=== PATIENT | female | born 1960 | race African-American/Black ===

== ENCOUNTER 2016-09-10 13:10 | Emergency (ER) | payer MEDICAID ==
[~2016-09-10] VITALS: Ht 165.1 cm; Wt 136.3 kg
[~2016-09-10 13:10] MED LIST: 1-ME1LIQ PO; AFRI0.055; ALBU6.7H INH; FURO20 PO; GABA600T PO; LISI-366 PO; METF500 PO; PERM5CRE TOP; POTA20IN3 PO; SPIRCAP INH; SYMB160A INH; TIZA4 PO
[2016-09-10 13:12] VITALS: BP 200/90; PULSE 81; RESP 18; TEMP 98.4; O2SAT 97
--- NOTE | 2016-09-10 15:40 | PD ---
HPI Chief Complaint: Cold / Flu Symptoms Time Seen by Provider: 15:40 Travel History International Travel<30 days: No Contact w/Intl Traveler<30days: No Traveled to known affect area: No History of Present Illness HPI 55-year-old female presents to the emergency Department with complaint of cough , nasal congestion, ear fullness, facial pressure 2 days. She has asthma and reports cough is continuous. She reports wheezing. She has been using her albuterol inhaler with minimal relief. Denies chest pain, shortness of breath. Denies fever, chills, nausea, vomiting. Denies headache. Has tried taking [id number] medications with no relief of symptoms. Grandson is sick with similar symptoms. Denies tobacco use. Has history of diabetes and hypertension. No other modifying factors or associated signs and symptoms. PFSH Past Medical History Asthma: Yes Depression: Yes COPD: Yes Diabetes: Yes Diminished Hearing: No Hypertension: Yes Respiratory: Yes Menopausal: Yes Tubal Ligation: Yes Past Surgical History Other Surgery: Yes (BREAST REDUCTION.) Social History Alcohol Use: No Tobacco Use: No (QUIT 2010 2 PPD) Substance Use: No Allergies-Medications (Allergen,Severity, Reaction): Coded Allergies: No Known Allergies (Unverified , 09/10/16) Reported Meds & Prescriptions Reported Meds & Active Scripts Active Deltasone (Prednisone) 20 Mg Tab 40 Mg PO DAILY 4 Days start 09/11/2016 Nasonex Nasal [place] (Mometasone Furoate) 50 Mcg/Act Naspr 2 [place] EACH NARE DAILY PRN Reported Hydrocodone-Acetaminophen 10-325 mg Tab 1 Tab PO BID PRN Benadryl Allergy (Diphenhydramine HCl) 25 Mg Tab 25 Mg PO BID PRN Sertraline (Sertraline HCl) 100 Mg Tab 100 Mg PO DAILY Ropinirole 0.5 Mg Tab 0.5 Mg PO HS Symbicort Inh (Budesonide/Formoterol Fumarate) 160-4.5 Mcg/Act Aero 1 Puff INH Q12HR Proventil Hfa 6.7 GM Inh (Albuterol Sulfate) 90 Mcg/Act Aer 2 Puff INH Q6H PRN Aspirin 81 Low Dose (Aspirin) 81 Mg Chew 81 Mg CHEW DAILY Potassium Chloride ER (Potassium Chloride) 10 Meq Tab 10 Meq PO DAILY Gabapentin 600 Mg Tab 600 Mg PO DAILY Mobic (Meloxicam) 15 Mg Tab 15 Mg PO TIDPC Amlodipine (Amlodipine Besylate) 10 Mg Tab 10 Mg PO DAILY Lisinopril 40 Mg Tab 40 Mg PO DAILY Furosemide 40 Mg Tab 40 Mg PO DAILY Claritin (Loratadine) 10 Mg Tab 10 Mg PO BID Metformin (Metformin HCl) 500 Mg Tab 500 Mg PO BIDPC With meals Review of Systems Except as stated in HPI: all other systems reviewed are Neg Physical Exam Narrative GENERAL: Well-nourished, well-developed female patient, in no acute distress SKIN: Warm and dry. No rash. HEAD: Atraumatic. Normocephalic. EYES: Pupils equal and round at 3 mm with brisk reaction. No scleral icterus. No injection or drainage. PERRLA. ENT: Mucosa pink and moist. No erythema or exudates. No uvular edema. No uvular , palatal, or tonsillar deviation. Airway patent. EARS: Bilateral pinnae and external canals appear within normal limits. Bilateral tympanic membranes without erythema, dullness or perforation. NECK: Trachea midline. No lymphadenopathy. CARDIOVASCULAR: Regular rate and rhythm. No murmur appreciated. RESPIRATORY: No accessory muscle use. Clear and decreased throughout to auscultation; no wheezing on auscultation. Breath sounds equal bilaterally. No audible wheezing. No retractions or tachypnea. GASTROINTESTINAL: Abdomen soft, non-tender, nondistended. Hepatic and splenic margins not palpable. Bowel sounds are active 4 quadrants. MUSCULOSKELETAL: No obvious deformities. No clubbing. No cyanosis. No edema. NEUROLOGICAL: Awake and alert. Oriented 3. No obvious cranial nerve deficits. Motor grossly within normal limits. Normal speech. Moves all extremities. 5/5 strength to all extremities. PSYCHIATRIC: Appropriate mood and affect; insight and judgment normal. Data Data Last Documented VS Vital Signs Date Time Temp Pulse Resp B/P Pulse Ox O2 Delivery O2 Flow Rate FiO2 09/10/16 17:12 68 18 155/83 97 Room Air 09/10/16 13:12 98.4 Orders Prednisone (Deltasone) (09/10/16 16:00) Albuterol-Ipratropium Neb (Duoneb Neb) (09/10/16 16:00) [facility] Medical Decision Making Medical Screen Exam Complete: Yes Emergency Medical Condition: Yes Medical Record Reviewed: Yes Differential Diagnosis Viral illness, bronchitis, asthma exacerbation, sinusitis Narrative Course 35-year-old female with history of asthma, physical exam consistent with viral illness and asthma exacerbation. Afebrile. Denies fever, chills, nausea, vomiting. Lungs are clear and equal throughout with decreased lung sounds. No retractions or tachypnea. No audible wheezing. Patient is in no acute distress and her oxygen saturation is 99% on room air. Patient has hypertension and the pressure is elevated in the ER 200/99. She is complaint with her medications. She denies symptoms of hypertension at this time. She' ll requesting steroids for asthma exacerbation. Discussed diabetes and steroid use and patient says she's taken them in the past and he usually prescribed to her when she gets sick like this. I will prescribe Deltasone per patient's request and her understanding of the side effects with diabetes. DuoNeb 1 and Deltasone administered in the ER. Blood pressure will be rechecked prior to discharge. 1723: Blood pressure recheck 155/83. Patient reports improvement in symptoms after breathing treatment. Lungs are clear and equal throughout on reexamination. Patient has albuterol inhaler at home and does not need a refill. Deltasone and Nasonex prescribed for home. Patient is medically cleared and stable for discharge. Discussed reasons to return to the emergency department. Instructed patient to follow up with primary care provider. Patient agrees with treatment plan. The patients vital signs are stable and the patient is stable for outpatient follow-up and treatment. Patient discharged home, stable and in no acute distress. Diagnosis Primary Impression: Viral illness Additional Impression: Asthma exacerbation Referrals: Primary Care Physician Patient Instructions: Asthma (ED), Cold Symptoms (ED), General Instructions, Safe Use of Cough and Cold Medicines (ED) Additional Instructions: Use albuterol inhaler 2-4 puffs every 4 hours at home as needed for shortness of breath and wheezing Take oral steroids as prescribed and complete full course avoid asthma triggers such as second hand smoke, dust, known allergens Ibuprofen or Tylenol as directed and as needed to reduce fever Get plenty of sleep/rest Drink plenty of fluids to prevent dehydration [place] diet to encourage nutrition such as crackers, fruit, applesauce, toast, soup etc. Use an air humidifier/turn off ceiling fans Follow-up with your primary care provider within 1 day Return immediately to the emergency department with worsening of symptoms Med/Other Pt SpecificInfo: Prescription(s) given Scripts Prednisone (Deltasone)20 Mg Tab40 Mg PO DAILY 4 Days Ref 0 start 09/11/2016 Prov:Elisabeth Galloway 09/10/16 Mometasone Nasal [place] (Nasonex Nasal [place])50 Mcg/Act Naspr2 [place] EACH NARE DAILY PRN (NASAL CONGESTION) #1 BOTTLE Ref 0 Prov:Elisabeth Galloway 09/10/16 Disposition: 01 DISCHARGE HOME Condition: Stable Elisabeth Galloway Sep 10, 2016 15:40
[2016-09-10] MEDS ORDERED: GABA600T PO (15:43)
[2016-09-10] MEDS ORDERED: LISI40TA PO (15:43)
[2016-09-10] MEDS ORDERED: LORA-361 PO (15:43)
[2016-09-10] MEDS ORDERED: AMLO10TA2 PO (15:43)
[2016-09-10] MEDS ORDERED: FURO40TA PO (15:43)
[2016-09-10] MEDS ORDERED: MOBI15TA PO (15:43)
[2016-09-10] MEDS ORDERED: METF500T PO (15:43)
[2016-09-10] MEDS ORDERED: POTA10TA2 PO (15:43)
[2016-09-10] MEDS ORDERED: ASPI81CH3 CHEW (15:44)
[2016-09-10] MEDS ORDERED: ALBU6.7H INH (15:44)
[2016-09-10] MEDS ORDERED: HYDR-3583 PO (15:44)
[2016-09-10] MEDS ORDERED: SYMB160A INH (15:44)
[2016-09-10] MEDS ORDERED: BENA25TA3 PO (15:44)
[2016-09-10] MEDS ORDERED: ROPI0.5T PO (15:44)
[2016-09-10] MEDS ORDERED: SERT-129 PO (15:44)
[2016-09-10] MEDS ORDERED: PRED-503 PO (15:48)
[2016-09-10] MEDS ORDERED: MOME17I EACH NARE (15:48)
[2016-09-10] MEDS ORDERED: predniSONE 20 MG TAB PO ONE (16:00)
[2016-09-10] MEDS ORDERED: RESP: ALBUTEROL 2.5 MG/IPRATROPIUM 0.5 MG NEB (SCH) INH ONE (16:00)
[2016-09-10 17:12] VITALS: BP 155/83; PULSE 68; RESP 18; O2SAT 97
== END 2016-09-10 17:25 | disposition home or self-care (01) ==
LOC: NEPB 13:10
DX: B34.9 Viral infection, unspecified (principal); J45.901 Unspecified asthma with (acute) exacerbation; J44.9 Chronic obstructive pulmonary disease, unspecified; Z87.891 Personal history of nicotine dependence
CPT/HCPCS: 94664; 99282; J7512

== ENCOUNTER 2017-05-15 13:58 | Emergency (ER) | payer MEDICAID ==
[~2017-05-15] VITALS: Ht 165.1 cm; Wt 142.0 kg
[~2017-05-15 13:58] MED LIST changes: -1-ME1LIQ PO; -AFRI0.055; +AMLO10TA2 PO; +ASPI81CH3 CHEW; +BENA25TA3 PO; -FURO20 PO; +FURO40TA PO; +HYDR-3583 PO; -LISI-366 PO; +LISI40TA PO; +LORA-361 PO; -METF500 PO; +METF500T PO; +MOBI15TA PO; +MOME17I EACH NARE; -PERM5CRE TOP; +POTA10TA2 PO; -POTA20IN3 PO; +PRED-503 PO; +ROPI0.5T PO; +SERT-129 PO; -SPIRCAP INH; -TIZA4 PO
[2017-05-15 14:01] VITALS: BP 160/74; PULSE 84; RESP 28; TEMP 99.1; O2SAT 95
[2017-05-15 14:08] VITALS: BP 149/96; PULSE 79; RESP 32; TEMP 99.1; O2SAT 97
--- NOTE | 2017-05-15 14:10 | PD ---
HPI Chief Complaint: Respiratory Distress Time Seen by Provider: 14:07 Travel History International Travel<30 days: No Contact w/Intl Traveler<30days: No History of Present Illness HPI Patient is a 56-year-old female with a history of asthma presents emergency Department with shortness of breath. Patient states been going on for the past 6-8 hours. Gradually worsening. She states that she's also been having sore throat loss of voice and cough and congestion. States his been going on for the past few days. She denies any fever denies any long periods of stasis. Denies any history of blood clots. Denies any contraceptive use. She states that she was using her inhaler and her nebulizer at home with some relief. PFSH Past Medical History Asthma: Yes Depression: Yes COPD: Yes Diabetes: Yes Diminished Hearing: No Hypertension: Yes Respiratory: Yes Menopausal: Yes Tubal Ligation: Yes Past Surgical History Other Surgery: Yes (BREAST REDUCTION.) Social History Alcohol Use: No Tobacco Use: No (QUIT 2010 2 PPD) Substance Use: No Allergies-Medications (Allergen,Severity, Reaction): Coded Allergies: No Known Allergies (Unverified , 05/15/17) Reported Meds & Prescriptions Reported Meds & Active Scripts Active Nasonex Nasal [place] (Mometasone Furoate) 50 Mcg/Act Naspr 2 [place] EACH NARE DAILY PRN Reported Hydrocodone-Acetaminophen 10-325 mg Tab 1 Tab PO BID PRN Sertraline (Sertraline HCl) 100 Mg Tab 100 Mg PO DAILY Symbicort Inh (Budesonide/Formoterol Fumarate) 160-4.5 Mcg/Act Aero 1 Puff INH Q12HR Proventil Hfa 6.7 GM Inh (Albuterol Sulfate) 90 Mcg/Act Aer 2 Puff INH Q6H PRN Aspirin 81 Low Dose (Aspirin) 81 Mg Chew 81 Mg CHEW DAILY Potassium Chloride ER (Potassium Chloride) 10 Meq Tab 10 Meq PO DAILY Gabapentin 600 Mg Tab 600 Mg PO DAILY Mobic (Meloxicam) 15 Mg Tab 15 Mg PO TIDPC Amlodipine (Amlodipine Besylate) 10 Mg Tab 10 Mg PO DAILY Furosemide 40 Mg Tab 40 Mg PO DAILY Metformin (Metformin HCl) 500 Mg Tab 500 Mg PO BIDPC With meals Review of Systems Except as stated in HPI: all other systems reviewed are Neg Physical Exam Narrative GENERAL: Well-developed, morbidly obese, tachypneic. SKIN: Focused skin assessment warm/dry. HEAD: Atraumatic. Normocephalic. EYES: Pupils equal and round. No scleral icterus. No injection or drainage. ENT: No nasal bleeding or discharge. Mucous membranes pink and moist. NECK: Trachea midline. No JVD. CARDIOVASCULAR: Regular rhythm tachycardia,. No murmur appreciated. No MG R. RESPIRATORY: No accessory muscle use. Clear to auscultation. Breath sounds equal bilaterally. Minimally tachypneic. Good air entry GASTROINTESTINAL: Abdomen soft, non-tender, nondistended. Hepatic and splenic margins not palpable. MUSCULOSKELETAL: No obvious deformities. No clubbing. No cyanosis. No edema. NEUROLOGICAL: Awake and alert. No obvious cranial nerve deficits. Motor grossly within normal limits. Normal speech. PSYCHIATRIC: Appropriate mood and affect; insight and judgment normal. Data Data Last Documented VS Vital Signs Date Time Temp Pulse Resp B/P (MAP) Pulse Ox O2 Delivery O2 Flow Rate FiO2 05/15/17 17:30 05/15/17 16:00 82 26 97 Nasal Cannula 3.00 05/15/17 14:08 99.1 Orders Orders Electrocardiogram (05/15/17 14:07) Ckmb (Isoenzyme) Profile (05/15/17 14:07) Complete Blood Count With Diff (05/15/17 14:07) Comprehensive Metabolic Panel (05/15/17 14:07) Magnesium (Mg) (05/15/17 14:07) Prothrombin Time / Inr (Pt) (05/15/17 14:07) Act Partial Throm Time (Ptt) (05/15/17 14:07) Troponin I (05/15/17 14:07) Chest, Single Ap (05/15/17 14:07) Ecg Monitoring (05/15/17 14:07) Iv Access Insert/Monitor (05/15/17 14:07) Oximetry (05/15/17 14:07) Oxygen Administration (05/15/17 14:07) Sodium Chloride 0.9% Flush (Ns Flush) (05/15/17 14:15) Ct Pulmonary Angiogram (05/15/17 14:07) Albuterol-Ipratropium Neb (Duoneb Neb) (05/15/17 14:15) Blood Gas Venous (Vbg) (05/15/17 14:07) Lidocaine 2% Viscous (Xylocaine 2% Visco (05/15/17 15:15) CKMB (05/15/17 14:20) CKMB% (05/15/17 14:20) Iohexol 350 Inj (Omnipaque 350 Inj) (05/15/17 15:39) Albuterol-Ipratropium Neb (Duoneb Neb) (05/15/17 16:00) Lorazepam Inj (Ativan Inj) (05/15/17 16:00) Labs Laboratory Tests Test 05/15/17 14:10 05/15/17 14:20 Blood Gas Puncture Site IV Blood Gas Patient Temperature 98.6 Venous Blood pH 7.38 Venous Blood Partial Pressure CO2 47 mmHg Venous Blood Partial Pressure O2 24 mmHg Venous Blood HCO3 27 mmol/L Venous Blood Oxygen Saturation 40 % Venous Blood Oxygen Content 6.7 Vol % Venous Blood Base Excess 2.7 mmol/L Oxygen Delivery Device NASAL CANNULA Blood Gas Liter Flow 2 L/M White Blood Count 4.7 TH/MM3 Red Blood Count 4.65 MIL/MM3 Hemoglobin 11.9 GM/DL Hematocrit 37.5 % Mean Corpuscular Volume 80.6 FL Mean Corpuscular Hemoglobin 25.6 PG Mean Corpuscular Hemoglobin Concent 31.7 % Red Cell Distribution Width 16.9 % Platelet Count 244 TH/MM3 Mean Platelet Volume 8.5 FL Neutrophils (%) (Auto) 45.8 % Lymphocytes (%) (Auto) 38.3 % Monocytes (%) (Auto) 9.2 % Eosinophils (%) (Auto) 6.2 % Basophils (%) (Auto) 0.5 % Neutrophils # (Auto) 2.2 TH/MM3 Lymphocytes # (Auto) 1.8 TH/MM3 Monocytes # (Auto) 0.4 TH/MM3 Eosinophils # (Auto) 0.3 TH/MM3 Basophils # (Auto) 0.0 TH/MM3 CBC Comment DIFF FINAL Differential Comment Prothrombin Time 10.5 SEC Prothromb Time International Ratio 1.0 RATIO Activated Partial Thromboplast Time 25.5 SEC Blood Urea Nitrogen 5 MG/DL Creatinine 0.63 MG/DL Random Glucose 88 MG/DL Total Protein 7.5 GM/DL Albumin 3.5 GM/DL Calcium Level 8.2 MG/DL Magnesium Level 2.0 MG/DL Alkaline Phosphatase 117 U/L Aspartate Amino Transf (AST/SGOT) 26 U/L Alanine Aminotransferase (ALT/SGPT) 30 U/L Total Bilirubin 0.4 MG/DL Sodium Level 141 MEQ/L Potassium Level 3.6 MEQ/L Chloride Level 108 MEQ/L Carbon Dioxide Level 27.6 MEQ/L Anion Gap 5 MEQ/L Estimat Glomerular Filtration Rate 118 ML/MIN Total Creatine Kinase 131 U/L Creatine Kinase MB 1.3 NG/ML Troponin I LESS THAN 0.02 NG/ML MDM Medical Decision Making Medical Screen Exam Complete: Yes Emergency Medical Condition: Yes Differential Diagnosis Asthma exacerbation, anxiety, PE, ACS unlikely. Narrative Course Patient roomed in the emergency department, her lungs are perfectly clear, PE needs consideration given her body habitus. CT PE protocol performed and shows no definitive pulmonary embolism, no pneumonias. Her labs are reassuring. She was given DuoNeb and started to feel somewhat better. She did have an decent response to Ativan. This time she was counseled that it appears that she has had an asthma exacerbation coupled with the URI. Discussed symptomatic management home and return to ED criteria. Diagnosis Primary Impression: Asthma exacerbation Disposition: 01 DISCHARGE HOME Condition: Stable Jayden Evangelista MD May 15, 2017 14:10
[2017-05-15] MEDS ORDERED: SODIUM CHLORIDE 0.9% FLUSH 10 ML FLUSH IVF PRN (14:15)
[2017-05-15] MEDS ORDERED: RESP: ALBUTEROL 2.5 MG/IPRATROPIUM 0.5 MG NEB (SCH) NEB ONE ×2 (14:15→16:00)
[2017-05-15 14:17] VITALS: RESP 32; O2SAT 100
[2017-05-15 14:20] LABS: BLOOD GAS VENOUS BASE EXCESS 2.7 mmol/L (-2-2); BLOOD GAS VENOUS HCO3 27 mmol/L (22-26); BLOOD GAS VENOUS O2 CONTENT 6.7 Vol % (9.0-17.0); BLOOD GAS VENOUS O2 HGB SAT 40 % (70-76); BLOOD GAS VENOUS PCO2 47 mmHg (44-48); BLOOD GAS VENOUS PO2 24 mmHg (35-40); BLOOD GAS VENOUS pH 7.38 (7.360-7.400); TEMP CORR TO 98.6
[2017-05-15 14:21] LABS: CRITICAL VALUE YES; DRAW SITE IV; LITER FLOW 2 L/M; OXYGEN DEVICE NASAL CANNULA; STAT YES
[2017-05-15 14:54] LABS: AUTOMATED NEUTROPHIL # 2.2 TH/MM3 (1.8-7.7); BASOPHIL % 0.5 % (0.0-2.0); EOSINOPHIL # 0.3 TH/MM3 (0-0.4); EOSINOPHIL % 6.2 % (0.0-4.0); HEMATOCRIT 37.5 % (35.0-46.0); HEMO FLAGS DIFF FINAL; LYMPH % 38.3 % (9.0-44.0); LYMPHOCYTE # 1.8 TH/MM3 (1.0-4.8); MEAN CELL VOLUME 80.6 FL (80.0-100.0); MEAN CORPUSCULAR HEMOGLOBIN 25.6 PG (27.0-34.0); MEAN CORPUSCULAR HGB CONC 31.7 % (32.0-36.0); MONO % 9.2 % (0.0-8.0); NEUT % 45.8 % (16.0-70.0); PLATELET COUNT 244 TH/MM3 (150-450); RED BLOOD COUNT 4.65 MIL/MM3 (4.00-5.30); RED CELL DISTRIBUTION WIDTH 16.9 % (11.6-17.2); WHITE BLOOD COUNT 4.7 TH/MM3 (4.0-11.0)
[2017-05-15 15:12] LABS: APTT (PATIENT) 25.5 SEC (24.3-30.1); PROTHROMBIN TIME - PATIENT 10.5 SEC (9.8-11.6)
[2017-05-15 15:13] LABS: ALKALINE PHOSPHATASE 117 U/L (45-117); CREATINE KINASE 131 U/L (26-192); TOTAL BILIRUBIN ADULT 0.4 MG/DL (0.2-1.0)
[2017-05-15] MEDS ORDERED: LIDOCAINE VISCOUS 2% SOLN 15 ML UDC SWISH-SWAL ONE (15:15)
[2017-05-15 15:21] LABS: ALT (GPT) 30 U/L (10-53); ANION GAP 5 MEQ/L (5-15); AST (GOT) 26 U/L (15-37); BICARBONATE 27.6 MEQ/L (21.0-32.0); BLOOD UREA NITROGEN 5 MG/DL (7-18); CHLORIDE 108 MEQ/L (98-107); GLOMERULAR FILTRATION RATE 118 ML/MIN (>89); POTASSIUM 3.6 MEQ/L (3.5-5.1); SODIUM (NA) 141 MEQ/L (136-145)
--- NOTE | 2017-05-15 15:21 | RADRPT ---
EXAM DATE/TIME: 05/15/2017 14:43 [facility] COMPARISON: CHEST SINGLE AP, June 29, 2015, 11:19. INDICATIONS : Patient states shortness of breath. MEDICAL HISTORY : Chronic obstructive pulmonary disease. Asthma SURGICAL HISTORY : None. ENCOUNTER: Initial ACUITY: 1 day PAIN SCORE: 2/10 LOCATION: Bilateral chest FINDINGS: Single AP view chest. Cardiac silhouette enlarged but unchanged. Mild atelectasis at the lung bases. Lungs otherwise clear. No evidence of pleural effusion or pneumothorax. CONCLUSION: Chronic cardiac silhouette enlargement. Mild bilateral lower lung atelectasis. Carlos Ralph MD on May 15, 2017 at 15:19 Board Certified Radiologist. This report was verified electronically.
[2017-05-15 15:25] LABS: CKMB 1.3 NG/ML (0.5-3.6)
[2017-05-15] MEDS ORDERED: IOHEXOL 350 MG/ML 10 ML VIAL (for RAD DIAG) IVCONTRAST ONE (15:39)
[2017-05-15 16:00] VITALS: BP 137/64; PULSE 82; RESP 26; O2SAT 97
[2017-05-15] MEDS ORDERED: LORazepam 2 MG/ML VIAL IV PUSH ONE (16:00)
--- NOTE | 2017-05-15 16:11 | RADRPT ---
EXAM DATE/TIME: 05/15/2017 15:28 [facility] COMPARISON: No previous studies available for comparison. INDICATIONS : Increased dyspnea IV CONTRAST: 69 cc Omnipaque 350 (iohexol) IV RADIATION DOSE: 26.4 CTDIvol (mGy) MEDICAL HISTORY : Hypertension. Diabetes mellitus type 1. SURGICAL HISTORY : Tubal ligation. ENCOUNTER: Initial ACUITY: 1 day PAIN SCALE: 0/10 LOCATION: chest TECHNIQUE: Volumetric scanning of the chest was performed using a pulmonary embolism protocol MIP images were re constructed. Using automated exposure control and adjustment of the mA and/or kV according to patien t size, radiation dose was kept as low as reasonably achievable to obtain optimal diagnostic quality images. DICOM format image data is available electronically for review and comparison. Follow-up recommendations for detected pulmonary nodules are based at a minimum on nodule size and pa tient risk factors according to Fleischner Society Guidelines. FINDINGS: PULMONARY ARTERIES: Motion artifact in the lower lobes are worse some of the pulmonary arteries. No pulmonary emboli iden tified. LUNGS: 8mm nodular density in the posterior right upper lobe on image #35. 6 mm nodular density in the left upper lobe on image #27. 6 mm nodular density in the left upper lobe on image #37. 1 cm nodular densi ty in the left upper lobe on image #44. PLEURAE: There is no pleural thickening or pleural effusion. MEDIASTINUM: Enlarged hilar lymph nodes bilaterally measuring 2.3 cm in greatest dimension on the right and 1.3 cm on the left. Several approximate 1 cm mediastinal lymph nodes in the prevascular and pretracheal reg ions. MUSCULOSKELETAL: Within normal limits for patient age. MISCELLANEOUS: The visualized upper abdominal organs demonstrate no acute abnormality. CONCLUSION: 1. Motion artifact lower lobes. 2. No pulmonary emboli identified. 3. Bilateral pulmonary nodules. The largest measures 1 cm in diameter. 4. Enlarged hilar and mediastinal lymph nodes. 5. No nodules or lymph nodes are definitively expressible by CT biopsy. Followup PET CT may be benefi cial if the etiology of these findings is not known. Carlos Ralph MD on May 15, 2017 at 16:01 Board Certified Radiologist. This report was verified electronically.
--- NOTE | 2017-05-16 09:31 | EKG ---
Date Performed: 05/15/2017 Time Performed: 14:11:59 PTAGE: 56 years EKG: Sinus rhythm NONSPECIFIC T-WAVE ABNORMALITY Compared to prior tracing no significant change BORDERLINE ECG PREVIOUS TRACING : 06/29/2015 11.00 DOCTOR: Alexys Arias Interpretating Date/Time 05/16/2017 09:29:38
== END 2017-05-15 17:37 | disposition home or self-care (01) ==
LOC: NEPE 13:58
DX: J45.901 Unspecified asthma with (acute) exacerbation (principal); R94.31 Abnormal electrocardiogram [ECG] [EKG]; J98.11 Atelectasis; R91.8 Other nonspecific abnormal finding of lung field; R59.9 Enlarged lymph nodes, unspecified; E66.01 Morbid (severe) obesity due to excess calories; J44.9 Chronic obstructive pulmonary disease, unspecified; E11.9 Type 2 diabetes mellitus without complications; I10 Essential (primary) hypertension
CPT/HCPCS: 71010; 71275; 80053; 82550; 82552; 82805; 83735; 84484; 85025; 85610; 85730; 93005; 94640; 94664; 96374; 99285; J2060; Q9967